=== PATIENT | female | born 1945 | race Caucasian/White ===

== ENCOUNTER 2017-07-12 10:51 | Outpatient (CLI) | payer MEDICARE ==
[2017-07-12 12:30] LABS: Bilirubin Negative (Negative); Blood, Urine Negative (Negative); Clarity CLEAR (Clear); Glucose, Urine (Dipstick) Negative (Negative); Leukocyte Negative (Negative); Nitrite Negative (Negative); Protein, Urine (Dipstick) Negative (Neg-Trace); Urobilinogen 0.2 mg/dL (0.2-1.0)
[2017-07-12 12:40] LABS: Bacteria/HPF None Seen HPF (None Seen); Hyaline Casts/LPF 0-3 HYALINE CAST LPF (0-3 Hyaline); Pathc Cast-AUWi Flag 0.13 (0-2.49); RBC/HPF None Seen HPF (0-3); Squamous Epithelial 0-3 HPF (0-3); WBC/HPF 0-3 HPF (0-3)
[2017-07-12 12:52] LABS: Anion Gap 11 mmol/L (10-20); BUN (Urea Nitrogen) 19 mg/dL (9.8-20.1); Calc. Creatinine Clearance 0 mL/min (70-130); Carbon Dioxide 28 mmol/L (23-31); Chloride 105 mmol/L (98-107); Estimated GFR-MDRD 65; Glucose 90 mg/dL (83-110); Sodium 140 mmol/L (136-145)
--- NOTE | 2017-07-12 13:55 | ULT ---
BILATERAL RENAL SONOGRAM: Date: 07/12/17 HISTORY: Stones. COMPARISON: 11/15/16. FINDINGS: On today's exam, the right kidney is 10.2 cm in length and the left kidney is 9.4 cm. There is thinni ng of the cortex of each kidney. Hyperechoic focus at the lateral cortex of the right kidney is measu red at 0.6 cm diameter and is stable compared to the previous exam. No hydronephrosis is evident. Uri nary bladder is incompletely distended. IMPRESSION: 1. No evidence of urinary tract obstruction. 2. Tiny dystrophic calcification at the right renal cortex is stable. 3. No urinary tract calcifications are reliably demonstrated. POS: [facility]
--- NOTE | 2017-07-12 14:10 | RAD ---
ABDOMEN 1 VIEW: HISTORY: Renal calculi. COMPARISON: 08/11/16. FINDINGS: Bowel gas pattern is nonspecific. Bowel content predominantly obscures each renal outline. Left ure teral stent from the previous study is no longer visible. Small calcifications project over the left renal shadow. Phleboliths project over the pelvis. There is calcification within the arterial stru ctures. Prominent degenerative changes of the lumbar spine are evident. IMPRESSION: 1. Interval removal of the left ureteral stent. Suspected remaining small left renal calculi. 2. Atherosclerosis. POS: [facility]
== END 2017-07-12 10:52 | disposition home or self-care (01) ==
LOC: ULT 10:51
PROVIDERS: ATTEND Urology
DX: N20.0 Calculus of kidney (principal)
CPT/HCPCS: 36415; 74018; 76770; 80048; 81001; 87086

== ENCOUNTER 2017-07-28 09:01 | Outpatient (CLI) | payer MEDICARE ==
--- NOTE | 2017-07-28 10:17 | RAD ---
CHEST TWO VIEWS: Date: 07-28-17 Provided Clinical History: Pre op. FINDINGS: Cardiac and mediastinal silhouette is within normal limits. Lungs appear clear. No pleural fluid or p neumothorax apparent. IMPRESSION: No evidence for an acute cardiopulmonary process. POS: [facility]
[2017-07-28 10:45] LABS: Anion Gap 11 mmol/L (10-20); BUN (Urea Nitrogen) 14 mg/dL (9.8-20.1); Calc. Creatinine Clearance 0 mL/min (70-130); Calcium 9.7 mg/dL (7.8-10.44); Carbon Dioxide 27 mmol/L (23-31); Chloride 110 mmol/L (98-107); Estimated GFR-MDRD 69; Glucose 97 mg/dL (83-110); Potassium 4.8 mmol/L (3.5-5.1); Sodium 143 mmol/L (136-145)
== END 2017-07-28 09:02 | disposition home or self-care (01) ==
LOC: LABBT 09:01
PROVIDERS: ATTEND Orthopaedic Surgery Hand Surgery
DX: Z01.818 Encounter for other preprocedural examination (principal); Z01.812 Encounter for preprocedural laboratory examination; Z01.810 Encounter for preprocedural cardiovascular examination; G56.02 Carpal tunnel syndrome, left upper limb
CPT/HCPCS: 71046; 80048; 93005; 93010

== ENCOUNTER 2017-08-01 10:12 | Day surgery (SDC) | payer MEDICARE ==
[2017-07-28 09:15] VITALS: BMI 24.7
[2017-08-01] MEDS ORDERED: Fentanyl 100 MCG/2 ML VIAL ONE (10:39)
[2017-08-01] MEDS ORDERED: Betamet Acet/Betamet Na Ph 30 MG/5 ML VIAL ONE (10:43)
[2017-08-01] MEDS ORDERED: Bacitracin Zinc Ointment 30 gm TUBE ONE (10:43)
[2017-08-01] MEDS ORDERED: Bupivacaine PF 0.5% 30 ML VIAL ONE (10:43)
[2017-08-01] MEDS ORDERED: CEFAZOLIN/Water 2 GM/20 ML SYRINGE ONE (11:09)
[2017-08-01] MEDS ORDERED: Clindamycin/D5W 900 mg/50 ml Premix Bag ONE (11:37)
[2017-08-01] MEDS ORDERED: Ketorolac Tromethamine 30 MG/ML VIAL ONE (13:20)
--- NOTE | 2017-08-01 15:01 | OP ---
DATE OF PROCEDURE: 08/01/2017. PREOPERATIVE DIAGNOSIS: Left carpal tunnel syndrome. POSTOPERATIVE DIAGNOSIS: Left carpal tunnel syndrome. FINDINGS: Very tight transverse carpal ligament over the median nerve throughout the entire carpal c anal with it flattened over 50% of its course, approximately 50% in diameter. TOURNIQUET TIME: 50 minutes. ESTIMATED BLOOD LOSS: 5 mL. INJECTABLES: Yes, Celestone/betamethasone 3 mL drip technique around the median nerve in the carpal canal. 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 ANESTHESIA: Local IV sedation by Lenny Rosen CRNA with [facility]. DESCRIPTION OF PROCEDURE: After successful anesthesia listed above, the limb was prepped and draped. The patient had a time-out accomplished. Then, once the local had 5 minutes to set up, we exsangui nated the limb, inflated the tourniquet to 250 mmHg pressure. Outlined the incision along the medial lateral axis in line with the ring finger as far distal as Myers's cardinal line as far proximal as 5 mm proximal volar wrist flexion crease. This was carried through skin and subcutaneous tissue unt il we found a transverse carpal ligament. We made an incision in the center of the ligament and then from there distal under direct magnification with loops, released the transcarpal ligament. She had a type 1 median motor branch takeoff and this was preserved. Then, from there proximally we used the combination of a [place] blade and a sharp tenotomy scissor to release the transverse carpal ligament. Once this was done, we could see there was some edema aroun d the nerve in one area, but after that it was flattened without stippling. We then placed a Celesto ne over the flattened area, released the tourniquet, obtained hemostasis and closed the wound with in terrupted 4-0 nylon. Bulky dressing was applied. The patient left the operating room without eviden ce of anesthetic or operative complication.
[2017-08-01] MEDS ORDERED: Metoclopramide HCl 10 MG/2 ML VIAL ONE (15:20)
[2017-08-01] MEDS ORDERED: Lidocaine 1% PF 5 ML VIAL ONE (15:20)
[2017-08-01] MEDS ORDERED: PROPOFOL 200 MG/20 ML VIAL ONE (15:20)
== END 2017-08-01 13:50 | disposition home or self-care (01) ==
LOC: SDC 10:12
PROVIDERS: ATTEND Orthopaedic Surgery Hand Surgery
PROC: 01N50ZZ Release Median Nerve, Open Approach (ICD-10-PCS; principal; 2017-08-01)
DX: G56.02 Carpal tunnel syndrome, left upper limb (principal); I10 Essential (primary) hypertension; E78.5 Hyperlipidemia, unspecified; K50.90 Crohn's disease, unspecified, without complications; K21.9 Gastro-esophageal reflux disease without esophagitis; I38 Endocarditis, valve unspecified; Z88.5 Allergy status to narcotic agent; Z88.2 Allergy status to sulfonamides; Z88.1 Allergy status to other antibiotic agents; Z91.012 Allergy to eggs; Z91.013 Allergy to seafood; Z91.018 Allergy to other foods; Z88.7 Allergy status to serum and vaccine; Z91.040 Latex allergy status; Z91.041 Radiographic dye allergy status; Z90.13 Acquired absence of bilateral breasts and nipples; Z98.890 Other specified postprocedural states
CPT/HCPCS: J0702; J1885; J2001; J2704; J2765; J3010; J3490; S0020

== ENCOUNTER 2017-11-15 10:30 | Outpatient (CLI) | payer MEDICARE ==
[2017-11-15 11:53] LABS: #Eosinphils 0.1 thou/uL (0.0-0.7); #Lymphocytes 0.9 thou/uL (1.20-3.40); #Monocytes 0.3 thou/uL (0.11-0.59); %Basophils 0.2 % (0.0-1.0); %Eosinophils 1.9 % (0.0-10.0); %Lymphocytes 21.4 % (21.0-51.0); %Monocytes 6.1 % (0.0-10.0); %Neutrophils 70.3 % (42.0-75.0); Hemoglobin 14.8 g/dL (12.0-16.0); Mean Corpuscular HGB CONC 33.9 g/dL (32.0-36.0); Mean Corpuscular Hemoglobin 30.4 pg (27.0-31.0); Mean Corpuscular Volume 89.7 fl (81.0-99.0); Mean Platelet Volume 8.7 fL (7.4-10.4); Platelet Count 144 thou/uL (130-400); Red Blood Cell (RBC) Count 4.86 mill/uL (4.20-5.40); White Blood Cell (WBC) Count 4.2 thou/uL (4.8-10.8)
[2017-11-15 11:57] LABS: PTT 25.3 SEC (22.9-36.1)
[2017-11-15 12:11] LABS: Anion Gap 9 mmol/L (10-20); BUN (Urea Nitrogen) 15 mg/dL (9.8-20.1); Calc. Creatinine Clearance 0 mL/min (70-130); Calcium 9.2 mg/dL (7.8-10.44); Carbon Dioxide 23 mmol/L (23-31); Chloride 111 mmol/L (98-107); Estimated GFR-MDRD 71; Glucose 87 mg/dL (83-110); Potassium 4.1 mmol/L (3.5-5.1); Sodium 139 mmol/L (136-145)
[2017-11-15 12:21] LABS: Bilirubin Negative (Negative); Blood, Urine Negative (Negative); Clarity CLEAR (Clear); Glucose, Urine (Dipstick) Negative (Negative); Leukocyte Negative (Negative); Nitrite Negative (Negative); Protein, Urine (Dipstick) 30 mg/dL (Neg-Trace); Specific Gravity, Urine 1.014 (1.002-1.036); pH, Urine 7.5 (5.0-9.0)
[2017-11-15 12:29] LABS: Bacteria/HPF None Seen HPF (None Seen); Hyaline Casts/LPF 0-3 HYALINE CAST LPF (0-3 Hyaline); Pathc Cast-AUWi Flag 0.14 (0-2.49); RBC/HPF 0-3 HPF (0-3); Squamous Epithelial 0-3 HPF (0-3); WBC/HPF 0-3 HPF (0-3)
--- NOTE | 2017-11-15 14:01 | RAD ---
PA AND LATERAL CHEST: History: Pre-operative evaluation. Comparison: 07-28-17 FINDINGS: The heart size is borderline. The aorta is tortuous. The lungs are expanded without focal areas of co nsolidation, pneumothorax or pleural effusions. Mild scoliosis of the spine. IMPRESSION: No radiographic evidence of acute cardiopulmonary process. POS: [facility]
--- NOTE | 2017-11-15 20:28 | EKG ---
Test Reason : Blood Pressure : / mmHG Vent. Rate : 056 BPM Atrial Rate : 056 BPM P-R Int : 130 ms QRS Dur : 078 ms QT Int : 458 ms P-R-T Axes : 044 -06 110 degrees QTc Int : 441 ms Sinus bradycardia Nonspecific ST and T wave abnormality Abnormal ECG When compared with ECG of 28-JUL-2017 09:55, Nonspecific T wave abnormality, improved in Lateral leads Confirmed by VICTORIA ARANA (2) on 11/15/2017 8:27:48 PM Referred By: JOSHUA Confirmed By:VICTORIA ARANA
== END 2017-11-15 10:31 | disposition home or self-care (01) ==
LOC: LABBT 10:30
PROVIDERS: ATTEND Orthopaedic Surgery Hand Surgery
DX: Z01.818 Encounter for other preprocedural examination (principal); M24.50 Contracture, unspecified joint; R00.1 Bradycardia, unspecified; R94.31 Abnormal electrocardiogram [ECG] [EKG]
CPT/HCPCS: 71046; 80048; 81001; 85025; 85610; 85730; 86850; 86900; 86901; 93005; 93010

== ENCOUNTER 2017-11-21 11:06 | Inpatient (IN) | payer MEDICARE ==
[~2017-11-21 11:06] MED LIST: Lidocaine 1% PF 5 ML VIAL ONE; PROPOFOL 200 MG/20 ML VIAL ONE; ePHEDrine/0.9% NaCl/PF SYRINGE 50 mg/10 ml ONE
[2017-11-21] MEDS ORDERED: Fentanyl 100 MCG/2 ML VIAL ONE ×3 (15:23→23:11)
[2017-11-21] MEDS ORDERED: HYDROmorphone 0.5 MG/0.5 ML SYRINGE ONE (15:24)
[2017-11-21] MEDS ORDERED: Betamet Acet/Betamet Na Ph 30 MG/5 ML VIAL ONE (15:29)
[2017-11-21] MEDS ORDERED: Sodium Chloride 0.9% 10 ML ONE (15:29)
[2017-11-21] MEDS ORDERED: Bacitracin Zinc Ointment 30 gm TUBE ONE (15:29)
[2017-11-21] MEDS ORDERED: Bupivacaine PF 0.5% 30 ML VIAL ONE (15:29)
--- NOTE | 2017-11-21 20:09 | RAD ---
FINGER RADIOGRAPHS TWO VIEWS: 11/21/2017 PROVIDED CLINICAL HISTORY: Pinning of second finger. FINDINGS: Spot fluoroscopic images demonstrate pinning of the thumb IP joint, percutaneously. The side is not specified. POS: [facility]
[2017-11-21] MEDS ORDERED: Ondansetron HCl/PF 4 MG/2 ML Vial IVP PRN (22:11)
[2017-11-21] MEDS ORDERED: Promethazine HCl 25 MG/ML VIAL IM PRN (22:11)
[2017-11-21] MEDS ORDERED: Promethazine HCl 25 MG/ML VIAL SLOW IVP PRN (22:11)
[2017-11-21] MEDS ORDERED: Milk Of Magnesia 30 ML UDCUP PO PRN (22:32)
[2017-11-21] MEDS ORDERED: Bisacodyl 10 MG SUPP PR PRN (22:32)
[2017-11-21] MEDS ORDERED: Acetaminophen 325 MG TAB PO PRN (22:32)
[2017-11-21] MEDS ORDERED: Ondansetron HCl/PF 4 MG/2 ML Vial IV PRN (22:32)
[2017-11-21] MEDS ORDERED: RENALLY ADJUST ALL ANTIBIOTICS FS SCH (22:45)
[2017-11-21 23:12] LABS: #Lymphocytes 0.6 thou/uL (1.20-3.40); #Monocytes 0.2 thou/uL (0.11-0.59); %Basophils 0.2 % (0.0-1.0); %Eosinophils 0.2 % (0.0-10.0); %Lymphocytes 7.3 % (21.0-51.0); %Monocytes 2.6 % (0.0-10.0); %Neutrophils 89.7 % (42.0-75.0); Hemoglobin 13.2 g/dL (12.0-16.0); Mean Corpuscular HGB CONC 34.4 g/dL (32.0-36.0); Mean Corpuscular Hemoglobin 30.8 pg (27.0-31.0); Mean Corpuscular Volume 89.5 fl (81.0-99.0); Mean Platelet Volume 8.2 fL (7.4-10.4); Platelet Count 118 thou/uL (130-400); RBC Distribution Width 11.7 % (11.5-14.5); Red Blood Cell (RBC) Count 4.29 mill/uL (4.20-5.40); White Blood Cell (WBC) Count 7.8 thou/uL (4.8-10.8)
[2017-11-21] MEDS ORDERED: TETANUS AND DIPHTHERIA TOX/PF 0.5 ML DISP.SYRIN IM SCH (23:59)
[2017-11-22] MEDS: Morphine 4 MG/ML VIAL SLOW IVP PRN ×4 (01:20→16:19)
[2017-11-22 02:49] VITALS: BMI 23.3
[2017-11-22] MEDS ORDERED: HYDROcodone/Acetaminophen 5/325 mg Tablet PO PRN ×2 (03:07)
[2017-11-22] MEDS ORDERED: Fentanyl 100 MCG/2 ML VIAL SLOW IVP PRN (03:07)
[2017-11-22] MEDS ORDERED: Ondansetron HCl/PF 4 MG/2 ML Vial IVP PRN (03:07)
[2017-11-22] MEDS ORDERED: Promethazine HCl 25 MG/ML VIAL SLOW IVP PRN (03:07)
[2017-11-22 04:51] LABS: #Lymphocytes 0.8 thou/uL (1.20-3.40); #Monocytes 0.5 thou/uL (0.11-0.59); #Neutrophils 8.4 thou/uL (1.40-6.50); %Eosinophils 0.2 % (0.0-10.0); %Lymphocytes 7.8 % (21.0-51.0); %Monocytes 5.3 % (0.0-10.0); %Neutrophils 86.7 % (42.0-75.0); Hemoglobin 13.1 g/dL (12.0-16.0); Mean Corpuscular HGB CONC 33.4 g/dL (32.0-36.0); Mean Corpuscular Hemoglobin 30.2 pg (27.0-31.0); Mean Corpuscular Volume 90.5 fl (81.0-99.0); Mean Platelet Volume 8.7 fL (7.4-10.4); Platelet Count 113 thou/uL (130-400); RBC Distribution Width 11.7 % (11.5-14.5); Red Blood Cell (RBC) Count 4.32 mill/uL (4.20-5.40); White Blood Cell (WBC) Count 9.7 thou/uL (4.8-10.8)
--- NOTE | 2017-11-22 08:37 | OP ---
DATE OF SURGERY: 11/21/2017 SURGEON: Raj Fay MD ANESTHESIA: General LMA technique augmented by 30 mL 0.5% Marcaine, francesco-incisional block at all sit es, 20 given before incision and 10 given at the large volar incision at the end of procedure. PREOPERATIVE DIAGNOSES: 1. Right thumb contracture with thumb interphalangeal joint flexed, absent hogan pinch. 2. Right flexion contracture, hemiplegic with spasm, wrist with decreased extension and digit MP holli nt, absent extension regardless of position of the wrist. PROCEDURES PERFORMED: 1. Flexor digitorum superficialis to all four digits and flexor digitorum profundus all 4 digits rec ession, and at the forearm level musculotendinous junction. 2. Flexor pollicis longus 1/2 transfer to the extensor pollicis longus, Mohamed transfer. 3. Flexor digitorum superficialis long finger to extensor carpi radialis brevis. 4. Flexor carpi ulnaris transfer to the extensor digitorum communis, 2 tailed, all done with Pulvert aft [place], at least 3. 5. Neuroplasty of superficial radial nerve. 6. Ulnar nerve neuroplasty with neurovascular bundle exploration. 7. Pinning of thumb interphalangeal joint on C-arm supervision. 8. The patient had a palmaris longus transfer to the abductor aponeurosis to achieve radial thumb ex tension. TOURNIQUET TIME: 170 minutes. First tourniquet is 60 minutes deflation while some early wounds were closed and tendon grafts passed, and then 68 minutes for the final tension and passage of the primar y graft. ESTIMATED BLOOD LOSS: 200 mL approximately. FINDINGS: Tight flexor, all phases. Absent metacarpophalangeal joint extension regardless of positi on of the wrist. Thumb interphalangeal joint contracture with total like a taylor of hogan pinch. DESCRIPTION OF PROCEDURE: After successful general LMA technique, limb was prepped and draped. The patient had time-out done appropriately. Immediately before the patient was prepped and draped, I ch ecked again to confirm and found the following contracture. The patient's elbow contracture with the patient asleep disappeared and then full extension with only minimal stiff endpoint. The patient lovell d wrist dorsiflexion that could be achieved to 20 degrees with much stiffness. The patient, however, did not have any increase in interphalangeal or proximal metacarpophalangeal joint flexion once asle ep and indeed the patient's thumb showed that the contracture was much more flexible at the interphal angeal joint. For this reason, the combination of tendon transfers after recession was contemplated and was then executed. After time-out done appropriately and the limb prepped and draped, the incisions outlined for the ten don transfers as described as we had done above. The primary modification was the need for recession s. For this reason, because so much loss of active extension even when asleep, the first thing we di d was make a palmar incision in mid third and proximal third junction; identified the median nerve, t he palmaris longus; and then immediately began a recession of the flexor digitorum superficialis, all 4 and flexor digitorum profundus, all 4. We allowed the tendons of the superficialis remain intact. I made 3 in recession woodard. Once this was done, to her management, we could then actually passive ly extend the MP joints to +10 and the PIP joints only had -20 of flexion. The DIP joints, however, still remain near bowstring-like initially. We slowly stretched the recession of each digit until th e interphalangeal joints had less tension and could easily be extended to -10 degrees without spring back. At this point, we felt we had maximized the recession and began the planned tendon procedures. At the thumb, we made a radial-based zigzag incision beginning just distal to interphalangeal joint, carried through skin and subcutaneous tissue back to the level of just proximal to A1 elizabeth, identif ied the raphe in the middle of the flexor pollicis longus. We released the raphe and its insertion d istally, tunneled under the A2 elizabeth, then tunneled it now at level of the oblique elizabeth, and at th e level of the A2 elizabeth, I was able to have enough length to reach the thumb interphalangeal joint. At this point, we then dissected the neurovascular bundle, passed the tendon remnant deep to this, m cesar an incision on the radial aspect of the dorsal thumb interphalangeal joint, and had a 1 cm proxim al to the extensor tendon insertion to prepare the weave in the area of the joint capsule, did not ex ecute at this time. Simultaneously, we made 2 zigzag incisions, one between the A2 and A3 elizabeth, and one just proximal t o the A1 elizabeth. We identified the flexor digitorum profundus to the long finger, released it, pulle d it just proximal to the chiasm into the palm wound just proximal to A1 elizabeth. At this point, we outlined the dorsal ulnar incision that would be used for the tendon transfer from recipient bed. Attention was turned palmarly, and a zigzag incision was made beginning near Myers's cardinal line coursing proximally, and then ending at the mid third of the forearm just 6 cm distal to the former incision used for recessions. At this point, we dissected free the entire palmaris soheila ramos including a portion that was long enough that it would reach 0.5 mm from the aponeurosis over the MP joint that will be used for a radial abduction transfer. Line of poor was made appropriately thr demetriagh tunneling. We then identified the ulnar neurovascular bundle via neuroplasty, protected it, and at a point on the insertion of the flexor carpi ulnaris into the pisiform, released it, then began i ts dissection back proximally until we dissected it even proximal to the primary wound into the wound used for recession. At this point, we also dissected out the tendon for the flexor pollicis longus, but did not recess it at this time. The patient then had the neuroplasty completed of the ulnar neurovascular bundle and then prepared to bring it dorsally. We made an incision dorsally, beginning at the retinaculum and coursing 8 cm pro ximal and as proximal as possible to identify the extensor digitorum communis with 4 limbs and extens or carpi radialis brevis, the most ulna of the 2 in this compartment. At this point, it was determin ed that we would perform a flexor digitorum superficialis long finger transfers to extensor carpi rad ialis brevis in appropriate 20 degrees of dorsiflexion using 4 Pulvertaft weaves, and then we followe d this with inlay through the tendons from ulnar proximal to radial distal and weaved it x2 before we tied it. At this point, the patient's tourniquet time had reached an area where we needed to release it, it wa s released. We then began to close the wounds that we will not use to include the long finger, westfall r wounds with excellent wound coverage and success. The patient now had the tourniquet re-inflated after 60 minutes of wound care. We first then approac hed the Mohamed transfer, pinned the joint in neutral degrees of extension with K-wire, and then made a Pulvertaft weave x3 in the extensor aponeurosis just proximal to the interphalangeal joint. This gave excellent position of interphalangeal joint prepared for later transfer. We also tunneled the e xtended aponeurosis of the palmaris longus, under the skin in line with the radial aponeurosis portio n of the abductor pollicis longus and extensor pollicis brevis, sutured it x2 with a Pulvertaft weave , and now we had achieved some radial transfer for radial abduction as well as hogan pinch. The patient had the hemostasis obtained, and then we completed the weave of the flexor digitorum supe rficialis in a Pulvertaft fashion x4 to the extensor carpi radialis brevis in appropriate positions a nd we prepared for splinting. Likewise, similar was done for left flexor carpi radialis to extensor digitorum communis, with palmaris longus to thumb abduction, pinning of the thumb interphalangeal holli nt to achieve the mission of visibility and then we made a final tourniquet deflation hemostasis afte r 68 minutes. The elbow remained in full extension for dressing. The wounds were without abnormalit y enough that they were irrigated and closed, and no neurovascular bundle showed even an evidence of leakage, and found that the patient had all the tensions tied in the graft appropriately after the we aves, including the double weave by the surgeon as the entity. There was no evidence of compression of neurovascular structures. Bulky dressing was applied. The patient left the operating room withou t evidence of anesthetic or operative complication.
[2017-11-22] MEDS: Meperidine HCl/PF 25 MG/ML VIAL IM SCH ×2 (09:25→20:22)
[2017-11-22] MEDS: Aspirin 81 mg Enteric Coated Tablet PO SCH ×2 (09:25→20:21)
[2017-11-22] MEDS ORDERED: Vancomycin HCl 1 GM in Premix Bag 1 BAG IVPB SCH (15:00)
[2017-11-23] MEDS: Morphine 4 MG/ML VIAL SLOW IVP PRN ×3 (04:41→16:51)
[2017-11-23] MEDS: Meperidine HCl/PF 25 MG/ML VIAL IM SCH ×2 (08:15→20:27)
[2017-11-23] MEDS: Aspirin 81 mg Enteric Coated Tablet PO SCH ×2 (08:15→20:27)
[2017-11-23] MEDS ORDERED: TETANUS AND DIPHTHERIA TOX/PF 0.5 ML DISP.SYRIN IM SCH (15:15)
[2017-11-24] MEDS: Erythromycin Base 250 MG TAB PO SCH ×2 (05:54→14:17)
[2017-11-24 07:40] VITALS: BP 122/79; TEMP 98.4
[2017-11-24] MEDS: Aspirin 81 mg Enteric Coated Tablet PO SCH (07:56)
[2017-11-24] MEDS: Meperidine HCl/PF 25 MG/ML VIAL IM SCH (07:58)
== END 2017-11-24 14:03 | disposition home health service (06) | DRG 513 ==
LOC: SDC 11:06 → T4-A 22:25 → OBSVTOIN 11-22 19:12
PROVIDERS: ADMIT Orthopaedic Surgery Hand Surgery; ATTEND Orthopaedic Surgery Hand Surgery
PROC: 0RSW34Z Reposition Right Finger Phalangeal Joint with Internal Fixation Device, Percutaneous Approach (ICD-10-PCS; principal; 2017-11-21)
PROC: 0LN70ZZ Release Right Hand Tendon, Open Approach (ICD-10-PCS; 2017-11-21)
PROC: 0KNC0ZZ Release Right Hand Muscle, Open Approach (ICD-10-PCS; 2017-11-21)
PROC: 0KX Muscles, Transfer (ICD-10-PCS; 2017-11-21)
PROC: 01Q60ZZ Repair Radial Nerve, Open Approach (ICD-10-PCS; 2017-11-21)
PROC: 01Q40ZZ Repair Ulnar Nerve, Open Approach (ICD-10-PCS; 2017-11-21)
PROC: 8E0XXBZ Computer Assisted Procedure of Upper Extremity (ICD-10-PCS; 2017-11-21)
DX: M24.541 Contracture, right hand (principal); K50.90 Crohn's disease, unspecified, without complications; I69.351 Hemiplegia and hemiparesis following cerebral infarction affecting right dominant side; I10 Essential (primary) hypertension; E78.5 Hyperlipidemia, unspecified; K21.9 Gastro-esophageal reflux disease without esophagitis; M41.9 Scoliosis, unspecified; H40.9 Unspecified glaucoma; G56.02 Carpal tunnel syndrome, left upper limb; Z87.442 Personal history of urinary calculi; Z90.13 Acquired absence of bilateral breasts and nipples; Z86.79 Personal history of other diseases of the circulatory system; Z79.899 Other long term (current) drug therapy; Z79.82 Long term (current) use of aspirin
CPT/HCPCS: 36415; 76001; 85025; 96374; A4216; J0131; J0702; J1170; J2001; J2175; J2270; J2704; J3010; J3370; J3490; S0020

== ENCOUNTER 2018-01-24 10:10 | Outpatient (CLI) | payer MEDICARE | END 2018-01-24 10:11 | disposition home or self-care (01) | LOC: BICULT 10:10 | PROVIDERS: ATTEND Urology | DX: N20.0 Calculus of kidney (principal) | CPT/HCPCS: 36415; 74018; 76770; 80048; 81001; 87077; 87086; 87186 ==

== ENCOUNTER 2018-06-05 08:30 | Day surgery (SDC) | payer MEDICARE ==
[2018-06-04 13:49] VITALS: BMI 24.4
[2018-06-05] MEDS ORDERED: CEFAZOLIN 2 GM/50 ML BAG ONE (08:53)
[2018-06-05] MEDS ORDERED: Sodium Chloride 0.9% 20 ML ONE (10:04)
[2018-06-05] MEDS ORDERED: Betamet Acet/Betamet Na Ph 30 MG/5 ML VIAL ONE (10:04)
[2018-06-05] MEDS ORDERED: Bupivacaine PF 0.5% 30 ML VIAL ONE (10:04)
[2018-06-05] MEDS ORDERED: Fentanyl 100 MCG/2 ML VIAL ONE (10:15)
[2018-06-05] MEDS ORDERED: Propofol 1,000 MG/100 ML VIAL IV ONE (10:15)
[2018-06-05 10:26] LABS: #Eosinphils 0.1 thou/uL (0.0-0.7); #Monocytes 0.2 thou/uL (0.11-0.59); #Neutrophils 3.9 thou/uL (1.40-6.50); %Basophils 0.2 % (0.0-1.0); %Eosinophils 1.5 % (0.0-10.0); %Lymphocytes 18.6 % (21.0-51.0); %Monocytes 4.3 % (0.0-10.0); %Neutrophils 75.5 % (42.0-75.0); Hemoglobin 14.3 g/dL (12.0-16.0); Mean Corpuscular HGB CONC 33.3 g/dL (32.0-36.0); Mean Corpuscular Hemoglobin 29.4 pg (27.0-31.0); Mean Corpuscular Volume 88.3 fL (78.0-98.0); Mean Platelet Volume 9.4 fL (7.4-10.4); Platelet Count 149 thou/uL (130-400); RBC Distribution Width 11.9 % (11.5-14.5); Red Blood Cell (RBC) Count 4.88 mill/uL (4.20-5.40); White Blood Cell (WBC) Count 5.1 thou/uL (4.8-10.8)
[2018-06-05] MEDS ORDERED: ePHEDrine/0.9% NaCl/PF SYRINGE 50 mg/10 ml ONE (16:35)
[2018-06-05] MEDS ORDERED: PROPOFOL 200 MG/20 ML VIAL ONE (16:35)
[2018-06-05] MEDS ORDERED: Lidocaine 1% PF 5 ML VIAL ONE (16:35)
--- NOTE | 2018-06-06 16:07 | OP ---
DATE OF PROCEDURE: 06/05/2018 PREOPERATIVE DIAGNOSES: Spastic contractures, biceps, flexor digitorum profundus, flexor digitorum superficialis, and adductor pollicis, also carpel tunnel syndrome. PROCEDURES PERFORMED: 1. Right carpal tunnel release. 2. Right biceps four-point injection with Botox, total of 100 units, 25 in each of the four sites. Two at right flexor digitorum profundus and flexor digitorum superficialis, 40 units each Botox injection at the proximal one-third of the forearm and right arm adductor 20 units of Botox injection under general anesthesia, all the Botox injections intramuscular. SPECIMENS: None. ESTIMATED BLOOD LOSS: 10 mL. TOURNIQUET TIME: 11 minutes. FINDINGS: Very tight transverse carpal ligament with spasm seen in the distal flexors and in the biceps that responded well initially intraop to the injections. DESCRIPTION OF PROCEDURE: After successful general LMA technique, the nerve prepped and draped. With the nerve prepped and draped, a sterile tourniquet was applied high. No tourniquet was applied initially, but still applied high in the arm after injections. We identified four sites in the volar forearm for the biceps and biceps brachialis. In each of these quadrants, we gave 25 units of the Botox to a total of 100 units. Five minutes later, her previous passive elbow extension was -40 with marked traction now she achieved 0 extension passively. We then identified the pattern by feel of the flexor digitorum profundus and superficialis tendons, gave 40 units of the Botox in each sites and then waited 10 minutes to see if the reflexes are short, responded well, and we could see no so increase in The patient then had the final injections in the adductor muscle which are slightly atrophied over the thumb could be identified. In midportion, we placed 20 units of Botox without complications. We then noted appreciable +5 degrees extension passively on all intraphalangeal joints. The thumb now had a resting attitude of approximately 20 degrees abduction instead of one of adduction to the first web space. We now tied the tourniquet high in the arm, well padded on sterile Webril/cast padding and the limb, inflated the sterile tourniquet high in the arm to 250 mmHg. We followed her old indyg-zakylie incision, where we had harvested palmaris longus tendon and here we could see that the fascia over both the distal forearm fascia as well as transverse carpal ligament was very tight. We performed direct visualization of tissues with [place] blade and we here also found in the distal forearm, there was no evidence of any tendon transfer, compression of the median nerve, occluded at the point where he had his nails began 1 cm proximal to the volar wrist flexion crease. We had now gone 3.5 cm proximal. We again now felt we had an excellent release, deflated the tourniquet, and obtained hemostasis. We closed the wound with an interrupted 2-0 Vicryl and closed the epidermal incisions over the carpal canal with the interrupted 4-0 nylon mattress pattern. She got a total of 30 mL injection divided equally amongst all her injection sites as well as the carpal canal. 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 Job ID: [id number]
== END 2018-06-05 14:45 | disposition home or self-care (01) ==
LOC: SDC 08:30
PROVIDERS: ATTEND Orthopaedic Surgery Hand Surgery
PROC: 01N50ZZ Release Median Nerve, Open Approach (ICD-10-PCS; principal; 2018-06-05)
PROC: 3E023GC Introduction of Other Therapeutic Substance into Muscle, Percutaneous Approach (ICD-10-PCS; 2018-06-05)
DX: G56.01 Carpal tunnel syndrome, right upper limb (principal); M24.521 Contracture, right elbow; M24.511 Contracture, right shoulder; G56.11 Other lesions of median nerve, right upper limb; E78.5 Hyperlipidemia, unspecified; I10 Essential (primary) hypertension; K50.90 Crohn's disease, unspecified, without complications; K21.9 Gastro-esophageal reflux disease without esophagitis; I69.151 Hemiplegia and hemiparesis following nontraumatic intracerebral hemorrhage affecting right dominant side; Z79.82 Long term (current) use of aspirin; Z79.899 Other long term (current) drug therapy; Z88.0 Allergy status to penicillin; Z88.1 Allergy status to other antibiotic agents; Z88.2 Allergy status to sulfonamides; Z88.5 Allergy status to narcotic agent; Z91.011 Allergy to milk products; Z91.013 Allergy to seafood; Z91.040 Latex allergy status; Z98.890 Other specified postprocedural states; Z88.7 Allergy status to serum and vaccine
CPT/HCPCS: 64644; 64721; 85025; J0585; J0131; J0702; J2001; J2704; J3010; S0020

== ENCOUNTER 2018-08-21 09:36 | Observation (INO) | payer MEDICARE ==
[2018-08-21 12:01] VITALS: BMI 25.5
[2018-08-21] MEDS ORDERED: GoLYTELY 4,000 ml Bottle PO SCH (12:15)
[2018-08-21 12:34] LABS: #Eosinphils 0.1 thou/uL (0.0-0.7); #Monocytes 0.2 thou/uL (0.11-0.59); #Neutrophils 3.3 thou/uL (1.40-6.50); %Basophils 0.2 % (0.0-1.0); %Eosinophils 1.8 % (0.0-10.0); %Lymphocytes 21.7 % (21.0-51.0); %Monocytes 4.8 % (0.0-10.0); %Neutrophils 71.6 % (42.0-75.0); Hemoglobin 15.4 g/dL (12.0-16.0); Mean Corpuscular HGB CONC 32.9 g/dL (32.0-36.0); Mean Corpuscular Hemoglobin 29.8 pg (27.0-31.0); Mean Corpuscular Volume 90.5 fL (78.0-98.0); Mean Platelet Volume 9.1 fL (7.4-10.4); Platelet Count 153 thou/uL (130-400); RBC Distribution Width 11.6 % (11.5-14.5); Red Blood Cell (RBC) Count 5.17 mill/uL (4.20-5.40); White Blood Cell (WBC) Count 4.6 thou/uL (4.8-10.8)
[2018-08-21 13:04] LABS: ALT (SGPT) 21 U/L (8-55); AST (SGOT) 28 U/L (5-34); Albumin 4.3 g/dL (3.4-4.8); Alkaline Phosphatase 109 U/L (40-150); Anion Gap 13 mmol/L (10-20); BUN (Urea Nitrogen) 7 mg/dL (9.8-20.1); Bilirubin, Total 1.5 mg/dL (0.2-1.2); CRP (Inflammatory) Less than 0.50 mg/dL (= or < 0.5); Calc. Creatinine Clearance 62 mL/min (70-130); Carbon Dioxide 21 mmol/L (23-31); Chloride 112 mmol/L (98-107); Estimated GFR-MDRD 69; Globulin 2.7 g/dL (2.4-3.5); Glucose 94 mg/dL (83-110); Potassium 4.3 mmol/L (3.5-5.1); Sodium 142 mmol/L (136-145)
[2018-08-21] MEDS: Sodium Chloride 0.9% 1,000 ML IV SCH ×2 (13:10→23:05)
[2018-08-21] MEDS: Famotidine 20 MG TAB PO SCH (20:10)
[2018-08-21] MEDS ORDERED: Rosuvastatin 20 MG TAB PO SCH (21:00)
[2018-08-22 07:16] VITALS: BP 107/61; TEMP 97.5
[2018-08-22] MEDS ORDERED: Atenolol 25 MG TAB PO SCH (09:00)
[2018-08-22] MEDS: Famotidine 20 MG TAB PO SCH (09:14)
[2018-08-22] MEDS ORDERED: Promethazine HCl 25 MG/ML VIAL IM PRN (09:33)
[2018-08-22] MEDS ORDERED: Promethazine HCl 25 MG/ML VIAL SLOW IVP PRN (09:33)
[2018-08-22] MEDS ORDERED: Ondansetron HCl/PF 4 MG/2 ML Vial IVP PRN (09:33)
[2018-08-22] MEDS: Sodium Chloride 0.9% 1,000 ML IV SCH (11:07)
[2018-08-22] MEDS ORDERED: PROPOFOL 200 MG/20 ML VIAL ONE (15:53)
--- NOTE | 2018-08-23 14:39 | OP ---
DATE OF PROCEDURE: 08/21/2018 PROCEDURE PERFORMED: Colonoscopy. PREMEDICATION: Given by Anesthesiology Department. PRE-PROCEDURE DIAGNOSES: 1. Diarrhea. 2. History of Crohn disease. POSTPROCEDURE DIAGNOSES: 1. Diverticulosis coli. 2. Otherwise normal colon exam. DESCRIPTION OF PROCEDURE: Written consents were obtained prior to procedure. After adequate sedation, rectal exam performed was normal. The endoscope was advanced to the cecum. The quality of the bowel prep was good. The cecum, ascending colon, hepatic flexure, transverse colon, descending colon appeared normal. Scattered diverticula were noted along the left colon, most notably in the sigmoid colon. Retroflexion was normal. The patient tolerated the procedure well. ASSESSMENT: 1. Sigmoid diverticulosis coli. 2. Otherwise, normal colon exam. RECOMMENDATIONS: Resume diet and medication. Job ID: [id number]
== END 2018-08-22 13:17 | disposition home or self-care (01) ==
LOC: T4-B 10:51 → EDSTATUS 08-22 09:35
PROVIDERS: ADMIT Internal Medicine Gastroenterology; ATTEND Internal Medicine Gastroenterology
PROC: 0DJD8ZZ Inspection of Lower Intestinal Tract, Via Natural or Artificial Opening Endoscopic (ICD-10-PCS; principal; 2018-08-21)
DX: K57.30 Diverticulosis of large intestine without perforation or abscess without bleeding (principal); K50.10 Crohn's disease of large intestine without complications; K64.9 Unspecified hemorrhoids; Z79.82 Long term (current) use of aspirin; Z79.899 Other long term (current) drug therapy; Z88.0 Allergy status to penicillin; Z88.1 Allergy status to other antibiotic agents; Z88.2 Allergy status to sulfonamides; Z88.5 Allergy status to narcotic agent; Z88.7 Allergy status to serum and vaccine; Z91.011 Allergy to milk products; Z91.012 Allergy to eggs; Z91.013 Allergy to seafood; Z91.018 Allergy to other foods; Z91.040 Latex allergy status; Z91.041 Radiographic dye allergy status
CPT/HCPCS: 45378; 80053; 85025; 86140; 96360; 96361 ×2; G0378; J2704

== ENCOUNTER 2018-10-29 11:44 | Day surgery (SDC) | payer MEDICARE ==
[2018-10-26 11:03] VITALS: BMI 23.9
[2018-10-29 12:28] LABS: #Eosinphils 0.1 thou/uL (0.0-0.7); #Lymphocytes 0.9 thou/uL (1.20-3.40); #Monocytes 0.2 thou/uL (0.11-0.59); #Neutrophils 2.7 thou/uL (1.40-6.50); %Basophils 0.3 % (0.0-1.0); %Eosinophils 1.9 % (0.0-10.0); %Lymphocytes 22.1 % (21.0-51.0); %Monocytes 5.4 % (0.0-10.0); %Neutrophils 70.4 % (42.0-75.0); Hemoglobin 13.9 g/dL (12.0-16.0); Mean Corpuscular HGB CONC 33.2 g/dL (32.0-36.0); Mean Corpuscular Hemoglobin 29.7 pg (27.0-31.0); Mean Corpuscular Volume 89.6 fL (78.0-98.0); Mean Platelet Volume 8.6 fL (7.4-10.4); Platelet Count 148 thou/uL (130-400); RBC Distribution Width 11.7 % (11.5-14.5); Red Blood Cell (RBC) Count 4.69 mill/uL (4.20-5.40); White Blood Cell (WBC) Count 3.9 thou/uL (4.8-10.8)
[2018-10-29] MEDS ORDERED: Midazolam HCl 2 mg/2 ml Vial ONE (13:42)
[2018-10-29] MEDS ORDERED: Fentanyl 100 MCG/2 ML VIAL ONE (13:42)
[2018-10-29 14:33] LABS: Bilirubin Negative (Negative); Blood, Urine Negative (Negative); Clarity CLEAR (Clear); Glucose, Urine (Dipstick) Negative (Negative); Leukocyte Small (Negative); Nitrite Positive (Negative); Protein, Urine (Dipstick) Negative (Neg-Trace); Specific Gravity, Urine 1.014 (1.002-1.036); pH, Urine 7.5 (5.0-9.0)
[2018-10-29 14:35] LABS: Bacteria/HPF 4+ HPF (None Seen); Hyaline Casts/LPF 0-3 HYALINE CAST LPF (0-3 Hyaline); Squamous Epithelial 0-3 HPF (0-3)
[2018-10-29] MEDS ORDERED: Sodium Chloride 0.9% 0 ML ONE (14:38)
[2018-10-29] MEDS ORDERED: Sodium Chloride 0.9% (PF) 10 ML VIAL FS SCH (14:45)
[2018-10-29] MEDS ORDERED: Ketorolac Tromethamine 30 MG/ML VIAL ONE (15:57)
[2018-10-29] MEDS ORDERED: PROPOFOL 200 MG/20 ML VIAL ONE (17:07)
--- NOTE | 2018-10-29 22:23 | OP ---
DATE OF PROCEDURE: 10/29/2018 PREOPERATIVE DIAGNOSIS: Right elbow flexor spasticity, digit and wrist flexor spasticity greater than the elbow spasticity, moderate adductor thumb spasticity. PROCEDURES PERFORMED: Botox injection to the following areas as listed below. 1. 200 units biceps brachialis muscle, right. 2. 400 units deep and superficial flexors, wrist and finger. 3. 200 units thumb adductor. 4. Flexor of the fingers and flexor of the digit of the wrist as 2x 200 units (400 units total). Concentration, the 200 units of reconstituted with 2 mL of preservative normal saline under sterile conditions. HISTORY: The patient had a flexor, had multiple tendon transfers and releases of contracture in order to allow her open her fingers up and grab objects. She lost almost 6 months ago, some of her ability to extend thumb, digits and elbow, and so instead of going to another operation, we decided to perform the injections. DESCRIPTION OF PROCEDURE: After successful general endotracheal anesthesia with propofol only. The limb was prepped and draped sterilely with DuraPrep. We then identified the sites, reconstituted the medication with 2 mL preservative per every 200 units and using a 5 mL syringe with 22-gauge needle, first performed the injection in the biceps brachialis, then flexor pronator at the flexor pronator tendon musculotendinous junction and then another 200 units in the muscle mass distally. Finally, we put 200 in the adductor thumb, reconstituted all the same technique. We allowed for hemostasis, covered with a Band-Aid at each site, and the patient left the operating room without complications. Job ID: [id number]
== END 2018-10-29 16:30 | disposition home or self-care (01) ==
LOC: SDC 11:44
PROVIDERS: ATTEND Orthopaedic Surgery Hand Surgery
PROC: 3E023GC Introduction of Other Therapeutic Substance into Muscle, Percutaneous Approach (ICD-10-PCS; principal; 2018-10-29)
DX: I69.351 Hemiplegia and hemiparesis following cerebral infarction affecting right dominant side (principal); M62.838 Other muscle spasm; M24.521 Contracture, right elbow; M24.511 Contracture, right shoulder; M20.091 Other deformity of right finger(s); I10 Essential (primary) hypertension; E78.5 Hyperlipidemia, unspecified; K21.9 Gastro-esophageal reflux disease without esophagitis; K50.90 Crohn's disease, unspecified, without complications; Z79.82 Long term (current) use of aspirin; Z79.899 Other long term (current) drug therapy; Z88.0 Allergy status to penicillin; Z88.1 Allergy status to other antibiotic agents; Z88.2 Allergy status to sulfonamides; Z88.5 Allergy status to narcotic agent; Z88.7 Allergy status to serum and vaccine; Z91.011 Allergy to milk products; Z91.012 Allergy to eggs; Z91.013 Allergy to seafood; Z91.040 Latex allergy status; Z91.041 Radiographic dye allergy status; Z91.018 Allergy to other foods; Z98.890 Other specified postprocedural states
CPT/HCPCS: 64644; 81001; 85025; J0585; 36415; J1885; J2250; J2704; J3010

== ENCOUNTER 2019-05-10 07:02 | Day surgery (SDC) | payer MEDICARE ==
[2019-05-09 14:00] VITALS: BMI 23.9
[2019-05-10 08:06] VITALS: BP 142/68; TEMP 97.8
--- NOTE | 2019-05-10 09:19 | RAD ---
CERVICAL, THORACIC, AND LUMBAR SPINE MYELOGRAM: HISTORY: Radiculopathy. Myelopathy. COMPARISON: None. EXPOSURE: 0.9 minutes, 144.6 mGy*^m2. FINDINGS: Initial 3-view clinical transformation specialist cervical spine radiograph demonstrates multilevel facet hypertrophy. There is no fracture. Predental space is normal. No prevertebral soft tissue swelling. There is spondylolisthesis at multiple levels. Two views thoracic spine demonstrate preservation of vertebral body height. Mild loss of disc space h eight in the thoracic spine. Two views lumbar spine: Mild rightward curvature of the upper lumbar spine. There is vacuum disc phenomenon at L4-L5. There i s grade 1 anterolisthesis of L3 upon L4. Successful lumbar puncture for cervical, thoracic and lumbar spine myelogram. A total of 9 cc of Isov ue-M 300 contrast was administered intrathecally. No immediate or postprocedure complications. TECHNIQUE: Consent obtained perform a complete myelogram. The patient's back was evaluated. The L2-L3 level was deemed appropriate. Skin was prepped and draped in a sterile fashion. 1% lidocaine, buffered with sodium bicarbonate was used for local anesthesia. Under fluoroscopic guidance, a 22-gauge spinal need le was advanced into the CSF space. Inner stylette was removed. A total of 9 cc of Isovue-M 300 contrast injected intrathecally. Patient tolerated the procedure well. No immediate or postprocedure complications. IMPRESSION: Successful lumbar puncture for complete spine myelogram. Transcribed Date/Time: 05/10/2019 9:28 AM
--- NOTE | 2019-05-10 09:38 | CT ---
POST MYELOGRAM CERVICAL SPINE CT: HISTORY: Radiculopathy. COMPARISON: None. TECHNIQUE: Cervical spine CT is performed in the axial plane. Three-dimensional reformatted images are submitted . FINDINGS: No craniocervical dissociation. Appropriate alignment of the lateral masses of C1 and C2. Appropriate alignment of the facets. No spondylolisthesis. No spondylolysis. Intact odontoid process. Cervical spine vertebral body height is maintained. No fracture. Visualized soft tissue neck structures are gr ossly unremarkable. Upper mediastinum is grossly unremarkable. Chronic changes in the visualized lung apices are noted. C2-C3: No significant central canal stenosis or significant neural foraminal narrowing. C3-C4: Broad-based disc osteophyte complex. Mild central canal stenosis. Mild bilateral foraminal sammy rowing due to uncovertebral hypertrophy. C4-C5:Broad-based disc osteophyte complex without significant central canal stenosis. Right neural fo ramen is mildly narrowed due to uncovertebral hypertrophy. Moderate left foraminal narrowing due to uncovertebral hypertrophy and facet hypertrophy. C5-C6: No significant central canal stenosis or significant neural foraminal narrowing. There is asym metric left facet hypertrophy. C6-C7:No significant central canal stenosis or significant neural foraminal narrowing. C7-T1: No significant central canal stenosis or significant neural foraminal narrowing. IMPRESSION: Degenerative changes of the cervical spine as detailed above. No evidence of high-grade central canal stenosis. Varying degrees of neural foraminal narrowing as described above. Transcribed Date/Time: 05/10/2019 10:29 AM
--- NOTE | 2019-05-10 09:48 | CT ---
THORACIC SPINE CT WITH CONTRAST: HISTORY: Radiculopathy. Myelopathy. COMPARISON: None. FINDINGS: Visualized mediastinum does not demonstrate any mass, lymphadenopathy or hematoma. There are coronary calcifications. Normal heart size. No significant pericardial fluid. Visualized upper abdomen is unremarkable. Linear opacities in the left and right lung apex likely represent scar and/or atelectasis. Irregular margin opacity in the right lower lobe is incompletely evaluated, measuring 0.5 cm. There are 2 separate ill-defined opacities in the posterior aspect of the right lower lobe measuring 0.3 cm. Depe ndent atelectatic changes in both lower lobes. Thoracic spine vertebral body height is maintained. No fracture. No spondylolisthesis. No spondylolys is. Thoracic cord appears to have an overall normal size. No cord malacia. No obvious cord expansion. Con us medullaris appears to terminate at the T12 level. Throughout the thoracic spine, there is no significant central canal stenosis or significant neural f oraminal narrowing. IMPRESSION: 1. No significant central canal stenosis or significant neural foraminal narrowing. 2. Nonspecific right lower lobe nodules. Code lung nodule Transcribed Date/Time: 05/10/2019 10:26 AM
--- NOTE | 2019-05-10 09:57 | CT ---
POST MYELOGRAM LUMBAR SPINE CT: HISTORY: Myelopathy. Radiculopathy. COMPARISON: None. TECHNIQUE: Postmyelogram lumbar spine CT is performed in the axial plane. Sagittal and coronal reformatted image s are submitted for interpretation. FINDINGS: Visualized solid organs are unremarkable. No retroperitoneal or paraspinal mass, lymphadenopathy or hematoma. Atherosclerosis. Solid organs are grossly unremarkable. There is evidence of diverticulosis in the sigmoid colon. No e vidence of diverticulitis. Nonspecific hypodensity in the left hemipelvis measures 2.0 x 3.4 cm. Attenuation coefficients favor a cystic lesion.. Five lumbar-type vertebrae. Mild rightward curvature of the upper lumbar spine centered at L2. There is leftward curvature of the L4 vertebral body. Spondylolisthesis: L3-L4: 5.9 mm of anterolisthesis of L4 for upon L5. Vacuum disc phenomenon at L4-L5 and L5-S1. Visualized sacrum and bony pelvis are intact. Lumbar spine vertebral body heights are maintained. No fracture. Conus medullaris terminates at the T12 level. T12-L1: No significant central canal stenosis or significant neural foraminal narrowing. L1-L2: No significant central canal stenosis or significant neural foraminal narrowing. L2-L3: Broad-based disc bulge, ligamentum flavum thickening and facet hypertrophy result in mild cent ral canal stenosis. Bilaterally the neural foramina are patent. L3-L4: Vacuum disc phenomenon. Broad-based disc bulge, ligament flavum thickening and facet hypertrop hy result in moderate to severe central canal stenosis. Moderate right and moderate to severe left neural foraminal narrowing. L4-L5: Vacuum disc phenomenon. Broad-based disc bulge, ligament flavum thickening and facet hypertrop hy result in moderate central canal stenosis. Narrowing of both subarticular zones with partial obscuration of bilateral traversing L5 nerve roots. Moderate to severe right neural foraminal narrowi ng. Mild left neural foraminal narrowing. L5-S1: No significant central canal stenosis or significant neural foraminal narrowing. IMPRESSION: 1. No fracture. 2. Moderate to severe central canal stenosis at L3-L4. Moderate central canal stenosis at L4-L5. 3. Moderate right neural foraminal narrowing and moderate to severe left neural foraminal narrowing a t L3-L4. Moderate to severe right neural foraminal narrowing at L4-L5. Transcribed Date/Time: 05/10/2019 10:20 AM
[2019-05-10] MEDS ORDERED: Iopamidol-M 300 61% 15 ML VIAL ONE (16:35)
== END 2019-05-10 10:30 | disposition home or self-care (01) ==
LOC: RAD 07:02
PROVIDERS: ATTEND Neurological Surgery
DX: M48.061 Spinal stenosis, lumbar region without neurogenic claudication (principal); M43.16 Spondylolisthesis, lumbar region; M54.14 Radiculopathy, thoracic region; M50.00 Cervical disc disorder with myelopathy, unspecified cervical region; I10 Essential (primary) hypertension; E78.5 Hyperlipidemia, unspecified; K50.00 Crohn's disease of small intestine without complications; Z79.899 Other long term (current) drug therapy; Z86.73 Personal history of transient ischemic attack (TIA), and cerebral infarction without residual deficits; Z88.0 Allergy status to penicillin; Z88.2 Allergy status to sulfonamides; Z88.5 Allergy status to narcotic agent; Z88.7 Allergy status to serum and vaccine; Z88.8 Allergy status to other drugs, medicaments and biological substances; Z91.011 Allergy to milk products; Z91.012 Allergy to eggs; Z91.013 Allergy to seafood; Z91.018 Allergy to other foods; Z91.040 Latex allergy status; Z91.041 Radiographic dye allergy status
CPT/HCPCS: 62305; 72126; 72129; 72132; Q9967

== ENCOUNTER 2019-05-23 15:07 | Outpatient (CLI) | payer MEDICARE ==
--- NOTE | 2019-05-23 15:38 | CT ---
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 Left kenrick of small to moderate size. Right cerebellar hemisphere of large size. Left cerebellar hemisphere of small to moderate size. The brainstem is atrophic, especially the kenrick and midbrain. Ventricles are normal in size and configurat ion. No mass effect, midline shift, or extraaxial fluid collection. No focal calvarial lesion. No interval change overall. IMPRESSION: 1. Multiple foci of encephalomalacia and gliosis representing previous insults, one in the right fron angi lobe, and multiple in the posterior fossa (cerebellum and brainstem). 2. No acute intracranial findings. 3. Brainstem atrophy. 4. No interval change since 07/06/2016.
== END 2019-05-23 15:08 | disposition home or self-care (01) ==
LOC: TBSIIMAG 15:07
PROVIDERS: ATTEND Neurological Surgery
DX: I67.1 Cerebral aneurysm, nonruptured (principal); G93.89 Other specified disorders of brain; G31.9 Degenerative disease of nervous system, unspecified
CPT/HCPCS: 70450

== ENCOUNTER 2019-07-23 13:40 | Outpatient (CLI) | payer MEDICARE ==
[2019-07-23] MEDS ORDERED: Magnevist 469MG/ML 20 ML VIAL ONE (15:33)
--- NOTE | 2019-07-23 15:38 | MRI ---
MRI of thebrain: 07/23/2019 COMPARISON:None available HISTORY:Brain tumor TECHNIQUE: Multiplanar multisequence MR imaging of thebrain with and without contrast Findings:No evidence for acute infarction. There is extensive encephalomalacia within bilateral cerebellar hemispheres posteriorly, right greate r than left. There is also prominent encephalomalacia near the vertex within the anterior right frontal lobe. Ther e is linear hemosiderin staining along the inferior margin of the area of encephalomalacia within the right frontal lobe, which is likely on the basis of remote hemorrhage. Gradient echo imaging demonstrates no evidence for acute hemorrhage. Multifocal periventricular, deep, and subcortical white matter T2/FLAIR hyperintensity noted, consist ent with small vessel disease. Volume loss/encephalomalacia noted within the ventral aspect of the kenrick on the left. There is brainstem volume loss. 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 No midl ine shift or mass effect. Postcontrast imaging demonstrates no abnormal enhancement within the brain parenchyma. IMPRESSION: Evidence of multifocal encephalomalacia, most prominent within the posterior fossa, as we ll as involving the right frontal lobe. 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 No enhancing mass lesion.
== END 2019-07-23 13:41 | disposition home or self-care (01) ==
LOC: MRI 13:40
PROVIDERS: ATTEND Neurological Surgery
DX: C71.9 Malignant neoplasm of brain, unspecified (principal); G93.89 Other specified disorders of brain
CPT/HCPCS: 70553; 82565